=== PATIENT | male | born 1950 | race Caucasian/White ===

== ENCOUNTER 2021-03-23 14:36 | Inpatient (IN) | payer MEDICARE, BC ==
[2021-03-23 18:28] VITALS: BMI 24.5
[2021-03-23] MEDS ORDERED: HumaLOG 300 UNITS/3 ML VIAL SC PRN ×2 (19:27)
[2021-03-23] MEDS ORDERED: Dextrose 50% Abboject 50 ML SYRINGE SLOW IVP PRN (19:27)
[2021-03-23] MEDS ORDERED: Dextrose 5% in Water 1,000 ML IV PRN (19:27)
[2021-03-23] MEDS ORDERED: Acetaminophen 325 MG TAB PO PRN (19:28)
[2021-03-23] MEDS ORDERED: Senokot S 8.6-50 MG TAB PO PRN (19:28)
[2021-03-23] MEDS ORDERED: Ondansetron ODT 4 MG TAB PO PRN (19:28)
[2021-03-23] MEDS ORDERED: Ondansetron PF 4 MG/2 ML Vial IVP PRN (19:28)
[2021-03-23 19:49] LABS: #Lymphocytes 0.9 thou/uL (1.20-3.40); #Monocytes 0.5 thou/uL (0.11-0.59); %Basophils 0.2 % (0.0-1.0); %Eosinophils 0.1 % (0.0-10.0); %Lymphocytes 9.9 % (21.0-51.0); %Monocytes 5.5 % (0.0-10.0); %Neutrophils 84.3 % (42.0-75.0); Hemoglobin 11.8 g/dL (14.0-18.0); Mean Corpuscular HGB CONC 32.3 g/dL (32.0-36.0); Mean Corpuscular Hemoglobin 30.6 pg (27.0-31.0); Mean Corpuscular Volume 94.7 fL (78.0-98.0); Platelet Count 247 thou/uL (130-400); RBC Distribution Width 11.6 % (11.5-14.5); Red Blood Cell (RBC) Count 3.84 mill/uL (4.70-6.10); White Blood Cell (WBC) Count 9.5 thou/uL (4.8-10.8)
[2021-03-23 20:11] LABS: ALT (SGPT) 16 U/L (8-55); AST (SGOT) 23 U/L (5-34); Albumin 3.4 g/dL (3.4-4.8); Alkaline Phosphatase 61 U/L (40-110); Anion Gap 14 mmol/L (10-20); BUN (Urea Nitrogen) 22 mg/dL (8.4-25.7); Bilirubin, Total 0.5 mg/dL (0.2-1.2); CRP (Inflammatory) 7.14 mg/dL (= or < 0.5); Calc. Creatinine Clearance 93 mL/min (70-130); Calcium 8.6 mg/dL (7.8-10.44); Carbon Dioxide 23 mmol/L (23-31); Globulin 3.6 g/dL (2.4-3.5); Glucose 200 mg/dL (80-115); Potassium 3.7 mmol/L (3.5-5.1)
[2021-03-23 20:12] LABS: Troponin I 0.013 ng/mL (< 0.028)
[2021-03-23 20:13] LABS: Chloride 101 mmol/L (98-107); Sodium 134 mmol/L (136-145)
[2021-03-23] MEDS: Benzonatate 100 MG CAP PO PRN (21:29)
[2021-03-24 04:36] LABS: Bacteria/HPF None Seen HPF (None Seen); Bilirubin Negative (Negative); Blood, Urine Negative (Negative); Clarity Clear (Clear); Glucose, Urine (Dipstick) Greater than 1000 mg/dL (Negative); Ketone, Urine Negative (Negative); Leukocyte Negative Leu/uL (Negative); Nitrite Negative (Negative); Protein, Urine (Dipstick) 10 mg/dL (Neg-Trace); RBC/HPF 0-3 HPF (0-3); Specific Gravity, Urine 1.036 (1.002-1.036); Squamous Epithelial None Seen HPF (0-3); Urobilinogen Normal mg/dL (Less than 2); WBC/HPF 0-3 HPF (0-3); pH, Urine 6.5 (5.0-9.0)
[2021-03-24 05:32] LABS: #Eosinphils 0.1 thou/uL (0.0-0.7); #Lymphocytes 1.1 thou/uL (1.20-3.40); #Monocytes 0.6 thou/uL (0.11-0.59); #Neutrophils 6.8 thou/uL (1.40-6.50); %Basophils 0.1 % (0.0-1.0); %Eosinophils 0.7 % (0.0-10.0); %Lymphocytes 12.8 % (21.0-51.0); %Neutrophils 79.3 % (42.0-75.0); Hemoglobin 10.8 g/dL (14.0-18.0); Mean Corpuscular HGB CONC 32.7 g/dL (32.0-36.0); Mean Corpuscular Hemoglobin 30.7 pg (27.0-31.0); Mean Corpuscular Volume 93.8 fL (78.0-98.0); Mean Platelet Volume 6.2 fL (7.4-10.4); Platelet Count 243 thou/uL (130-400); RBC Distribution Width 11.6 % (11.5-14.5); Red Blood Cell (RBC) Count 3.53 mill/uL (4.70-6.10); White Blood Cell (WBC) Count 8.6 thou/uL (4.8-10.8)
[2021-03-24 05:44] LABS: Anion Gap 11 mmol/L (10-20); BUN (Urea Nitrogen) 21 mg/dL (8.4-25.7); Calc. Creatinine Clearance 106 mL/min (70-130); Calcium 8.4 mg/dL (7.8-10.44); Carbon Dioxide 25 mmol/L (23-31); Chloride 104 mmol/L (98-107); Glucose 120 mg/dL (80-115); Potassium 3.8 mmol/L (3.5-5.1); Sodium 136 mmol/L (136-145)
[2021-03-24] MEDS: Ascorbic Acid 500 mg Chewable Tablet PO SCH (09:23)
[2021-03-24] MEDS: Atorvastatin Calcium 20 MG TAB PO SCH (09:23)
[2021-03-24] MEDS: Aspirin 81 mg Enteric Coated Tablet PO SCH (09:23)
[2021-03-24] MEDS: Dexamethasone 10 MG/ML VIAL SLOW IVP SCH (09:23)
[2021-03-24] MEDS: Fish Oil 1,000 MG CAP PO SCH ×2 (09:24→20:42)
[2021-03-24] MEDS: Losartan 25 MG TAB PO SCH (09:24)
[2021-03-24] MEDS: Fenofibrate Nanocrystallized 145 MG TAB PO SCH (09:24)
[2021-03-24] MEDS: Enoxaparin Sodium 100 MG/ML SYRINGE SC SCH ×2 (09:24→20:41)
[2021-03-24] MEDS: Zinc Sulfate 220 MG CAP PO SCH (09:25)
[2021-03-24] MEDS: Benzonatate 100 MG CAP PO PRN (20:42)
[2021-03-24] MEDS ORDERED: sulfaSALAzine 500 MG TAB PO SCH (21:00)
[2021-03-25 05:32] LABS: #Eosinphils 0.1 thou/uL (0.0-0.7); #Lymphocytes 1.5 thou/uL (1.20-3.40); #Monocytes 0.8 thou/uL (0.11-0.59); #Neutrophils 5.7 thou/uL (1.40-6.50); %Basophils 0.5 % (0.0-1.0); %Eosinophils 0.8 % (0.0-10.0); %Lymphocytes 18.3 % (21.0-51.0); %Monocytes 9.3 % (0.0-10.0); %Neutrophils 71.1 % (42.0-75.0); Mean Corpuscular HGB CONC 32.3 g/dL (32.0-36.0); Mean Corpuscular Hemoglobin 30.9 pg (27.0-31.0); Mean Corpuscular Volume 95.6 fL (78.0-98.0); Mean Platelet Volume 6.1 fL (7.4-10.4); Platelet Count 250 thou/uL (130-400); RBC Distribution Width 11.5 % (11.5-14.5); Red Blood Cell (RBC) Count 3.55 mill/uL (4.70-6.10); White Blood Cell (WBC) Count 8.1 thou/uL (4.8-10.8)
[2021-03-25 05:49] LABS: Anion Gap 13 mmol/L (10-20); BUN (Urea Nitrogen) 20 mg/dL (8.4-25.7); Calc. Creatinine Clearance 104 mL/min (70-130); Calcium 8.6 mg/dL (7.8-10.44); Carbon Dioxide 23 mmol/L (23-31); Chloride 104 mmol/L (98-107); Glucose 113 mg/dL (80-115); Potassium 3.5 mmol/L (3.5-5.1); Sodium 136 mmol/L (136-145)
[2021-03-25] MEDS: Ascorbic Acid 500 mg Chewable Tablet PO SCH (08:38)
[2021-03-25] MEDS: Aspirin 81 mg Enteric Coated Tablet PO SCH (08:38)
[2021-03-25] MEDS: Atorvastatin Calcium 20 MG TAB PO SCH (08:38)
[2021-03-25] MEDS: Enoxaparin Sodium 100 MG/ML SYRINGE SC SCH (08:39)
[2021-03-25] MEDS: Fish Oil 1,000 MG CAP PO SCH (08:39)
[2021-03-25] MEDS: Dexamethasone 10 MG/ML VIAL SLOW IVP SCH (08:39)
[2021-03-25] MEDS: Fenofibrate Nanocrystallized 145 MG TAB PO SCH (08:39)
[2021-03-25] MEDS: Losartan 25 MG TAB PO SCH (08:39)
[2021-03-25] MEDS: Zinc Sulfate 220 MG CAP PO SCH (08:40)
[2021-03-25 15:58] VITALS: BP 127/76; TEMP 97.7
== END 2021-03-25 16:36 | disposition home or self-care (01) | DRG 177 ==
LOC: 2SW 14:36
PROVIDERS: ADMIT Internal Medicine; ATTEND Physician Assistant Medical
PROC: 8E0ZXY6 Isolation (ICD-10-PCS; principal; 2021-03-23)
DX: U07.1 COVID-19 (principal); J12.82 Pneumonia due to coronavirus disease 2019; I26.99 Other pulmonary embolism without acute cor pulmonale; J96.01 Acute respiratory failure with hypoxia; K51.90 Ulcerative colitis, unspecified, without complications; E87.1 Hypo-osmolality and hyponatremia; I10 Essential (primary) hypertension; I25.10 Atherosclerotic heart disease of native coronary artery without angina pectoris; E78.5 Hyperlipidemia, unspecified; D64.9 Anemia, unspecified; E11.9 Type 2 diabetes mellitus without complications; Z79.82 Long term (current) use of aspirin; Z79.84 Long term (current) use of oral hypoglycemic drugs; Z79.899 Other long term (current) drug therapy; Z95.1 Presence of aortocoronary bypass graft
CPT/HCPCS: 36415; 36416; 80048; 81001; 82728; 83615; 83735; 85025; 86140; 93005; 93010; 93970; J1100; J1650